=== PATIENT | female | born 1980 | race Caucasian/White ===

== ENCOUNTER → 2018-10-14 | Outpatient (CLI) | payer OTHER | LOC: COL.RAD 12:56 | DX: R51 Headache (principal) | CPT/HCPCS: A9585 ==

== ENCOUNTER → 2022-01-01 | Outpatient (CLI) | payer BC | LOC: MC.RAD 16:58 | DX: Z12.31 Encounter for screening mammogram for malignant neoplasm of breast (principal); R92.0 Mammographic microcalcification found on diagnostic imaging of breast ==

== ENCOUNTER → 2022-01-13 | Outpatient (CLI) | payer BC | LOC: MC.RAD 12:44 | DX: R92.1 Mammographic calcification found on diagnostic imaging of breast (principal) ==

== ENCOUNTER → 2022-01-21 | Outpatient (CLI) | payer BC | LOC: MC.RAD 06:53 | DX: R92.0 Mammographic microcalcification found on diagnostic imaging of breast (principal) ==

== ENCOUNTER 2022-09-18 13:00 | Outpatient (RCR) | payer BC | END 2022-09-21 | disposition home or self-care (01) | LOC: MKS.ESL.PT | DX: Z42.1 Encounter for breast reconstruction following mastectomy (principal); M25.512 Pain in left shoulder ==

== ENCOUNTER → 2023-09-02 | Outpatient (CLI) | payer BC | LOC: COL.RAD 08:03 | DX: M25.512 Pain in left shoulder (principal) ==